=== PATIENT | male | born 1945 | race Two or more races ===

== ENCOUNTER 2018-05-08 17:42 | Emergency (ER) | END 2018-05-08 19:31 | disposition home or self-care (01) | DX: N40.1 Benign prostatic hyperplasia with lower urinary tract symptoms (principal); N41.9 Inflammatory disease of prostate, unspecified; R35.0 Frequency of micturition; E78.00 Pure hypercholesterolemia, unspecified ==

== ENCOUNTER 2018-10-14 15:59 | Emergency (ER) | payer MEDICARE, OTHER ==
[~2018-10-14] VITALS: Ht 175.3 cm; Wt 88.5 kg
[~2018-10-14 15:59] MED LIST: BENA20TA9 PO; CARV3.122 PO; DIGO125T PO; PRAS10TA5 PO; SIMV20TA6 PO; TAMS0.4C34 PO
[2018-10-14 16:24] LABS: *BILIRUBIN,URIN NEGATIVE (NEGATIVE); *BLOOD, URINE 1+ (NEGATIVE); *CLARITY,URINE CLEAR (CLEAR); *COLOR,URINE YELLOW (YELLOW); *KETONES,URINE NEGATIVE (NEGATIVE); *UROBILINOGEN,URINE 0.2 E.U./dl (NORMAL); LEUKOCYTE ESTERASE ,URINE TRACE (NEGATIVE); NITRITE, URINE NEGATIVE (NEGATIVE); UGLUCOSE NEGATIVE (NEGATIVE)
[2018-10-14] MEDS ORDERED: CIPROFLOXACIN HCL 250 MG TABLET ONE (16:43)
[2018-10-14] MEDS ORDERED: PHENAZOPYRIDINE HCL 100 MG TABLET ONE (16:43)
[2018-10-14] MEDS ORDERED: CIPROFLOXACIN HCL 250 MG TABLET PO ONE (16:45)
[2018-10-14] MEDS ORDERED: PHENAZOPYRIDINE HCL 100 MG TABLET PO ONE (16:45)
--- NOTE | 2018-10-14 16:48 | NUR ---
PATIENT WAS SEEN BY DR LANE. MEDICATIONS GIVEN ORDERED. DC, RX AND FOLLOW UP INSTRUCTIONS GIVEN AND EXPLAINED TO PATIENT AND SON WHO STATES THEY UNDERSTAND ALL INSTRUCTIONS.
== END 2018-10-14 16:52 | disposition home or self-care (01) ==
LOC: ER 15:59
DX: N39.0 Urinary tract infection, site not specified (principal); I25.10 Atherosclerotic heart disease of native coronary artery without angina pectoris; E78.00 Pure hypercholesterolemia, unspecified; Z79.899 Other long term (current) drug therapy
CPT/HCPCS: 87086; A4663

== ENCOUNTER 2025-02-25 09:25 | Inpatient (IN) | payer MEDICARE, OTHER ==
[~2025-02-25] VITALS: Ht 167.6 cm; Wt 68.5 kg
[~2025-02-25 09:25] MED LIST changes: +SIMV-46 PO; -SIMV20TA6 PO
[2025-02-25 10:04] VITALS: BP 135/59; TEMP 97.7
[2025-02-25 10:25] VITALS: BP 135/59; TEMP 97.7
[2025-02-25] MEDS ORDERED: REMEDY ESSENTIAL ZINC PASTE 113 GM TOP PRN (17:30)
[2025-02-25] MEDS ORDERED: EMPA10TA PO (17:46)
[2025-02-25] MEDS ORDERED: ASPI81TA31 PO (17:46)
[2025-02-25] MEDS ORDERED: CLON1TAB12 PO (17:47)
[2025-02-25] MEDS ORDERED: CLOP75TA33 PO (17:47)
[2025-02-25] MEDS ORDERED: SACU1TAB7 PO (17:48)
[2025-02-25] MEDS ORDERED: FURO40TA5 PO (17:48)
[2025-02-25 17:50] LABS: PLATELET COUNT (AUTO) 380 K/uL (152-348); RED BLOOD CELL COUNT(AUTO) 3.84 MIL/uL (4.06-5.63); RED CELL DISTRIBUTION WIDTH 14.7 % (12.1-16.2); WHITE BLOOD COUNT (AUTO) 6.5 K/uL (3.6-10.2)
[2025-02-25] MEDS ORDERED: CHOL500062 PO (17:51)
[2025-02-25] MEDS ORDERED: CHOL10005 PO (17:57)
[2025-02-25 18:04] LABS: ASPARTATE AMINOTRANSFERASE 22 U/L (15-37); CREATININE 1.9 mg/dL (0.6-1.3); SODIUM SERUM 133 mmol/L (136-145); TOTAL PROTEIN, SERUM 8.0 g/dL (6.4-8.2); UREA NITROGEN, BLOOD 51 mg/dL (7-18)
[2025-02-25 19:38] VITALS: BP 86/36; TEMP 97.4; O2SAT 97
[2025-02-25] MEDS: IV NS 1000 ML 1,000 ML IV ONE (21:12)
[2025-02-25] MEDS ORDERED: CLONAZEPAM 1 MG TABLET PO PRN (22:15)
[2025-02-26 06:08] VITALS: BP 95/41; TEMP 97.3; O2SAT 98
[2025-02-26 07:48] LABS: *BILIRUBIN,URIN NEGATIVE (NEGATIVE); *CLARITY,URINE CLEAR (CLEAR); *COLOR,URINE YELLOW (YELLOW); *KETONES,URINE NEGATIVE (NEGATIVE); *PROTEIN,URINE NEGATIVE (NEGATIVE); *UROBILINOGEN,URINE 0.2 E.U./dl (NORMAL); LEUKOCYTE ESTERASE ,URINE NEGATIVE (NEGATIVE); NITRITE, URINE NEGATIVE (NEGATIVE); UGLUCOSE 1+ (NEGATIVE)
[2025-02-26 07:51] LABS: *BLOOD, URINE TRACE (NEGATIVE)
[2025-02-26 08:00] VITALS: BP 97/53; TEMP 97.6; O2SAT 97
[2025-02-26] MEDS: SIMVASTATIN 20 MG TABLET PO SCH (08:13)
[2025-02-26] MEDS: SACUBITRIL/VALSARTAN 49 MG-51 MG TABLET PO SCH (08:13)
[2025-02-26] MEDS: ASPIRIN 81 MG TAB.CHEW PO SCH (08:13)
[2025-02-26] MEDS: CLOPIDOGREL 75 MG TABLET PO SCH (08:13)
[2025-02-26] MEDS: FUROSEMIDE 40 MG TABLET PO SCH (08:13)
[2025-02-26] MEDS: EMPAGLIFLOZIN 10 MG TABLET PO SCH (08:23)
[2025-02-26] MEDS: CHOLECALCIFEROL PO SCH (08:45)
[2025-02-26] MEDS ORDERED: MIDODRINE HCL 5 MG TABLET PO PRN (10:30)
[2025-02-26] MEDS: IV NORMAL SALINE 500 ML IV ONE (10:46)
[2025-02-26 12:27] LABS: CREATININE 1.9 mg/dL (0.6-1.3); SODIUM SERUM 133 mmol/L (136-145); UREA NITROGEN, BLOOD 50 mg/dL (7-18)
[2025-02-26 15:53] VITALS: BP_SYST 120; BP_SYST 97; BP_DIAS 49; BP_DIAS 63; TEMP 97.2; O2SAT 97
[2025-02-26 20:00] VITALS: BP 99/50; TEMP 97.5; O2SAT 98
[2025-02-26] MEDS: TAMSULOSIN HCL 0.4 MG CAP.SR.24H PO SCH (20:54)
[2025-02-26] MEDS: CARVEDILOL 3.125 MG TABLET PO SCH (20:54)
[2025-02-26] MEDS: SENNOSIDES/DOCUSATE SODIUM TABLET PO SCH (23:14)
[2025-02-26] MEDS: LACTULOSE 20 G/30 ML LIQUID UDC PO ONE (23:14)
[2025-02-27 06:00] VITALS: BP 114/63; TEMP 97.7; O2SAT 96
[2025-02-27 07:21] LABS: PLATELET COUNT (AUTO) 134 K/uL (152-348); RED BLOOD CELL COUNT(AUTO) 3.53 MIL/uL (4.06-5.63); RED CELL DISTRIBUTION WIDTH 14.8 % (12.1-16.2); WHITE BLOOD COUNT (AUTO) 6.5 K/uL (3.6-10.2)
[2025-02-27 07:49] LABS: ASPARTATE AMINOTRANSFERASE 22 U/L (15-37); CREATININE 1.6 mg/dL (0.6-1.3); UREA NITROGEN, BLOOD 44 mg/dL (7-18)
[2025-02-27 08:00] VITALS: BP 103/54; TEMP 97.6; O2SAT 98
[2025-02-27 08:12] LABS: CREATINE KINASE, TOTAL 79 U/L (39-308); SODIUM SERUM 134 mmol/L (136-145); TOTAL PROTEIN, SERUM 7.2 g/dL (6.4-8.2)
[2025-02-27] MEDS: CHOLECALCIFEROL 1,000 UNIT TABLET PO SCH (08:38)
[2025-02-27] MEDS: LACTULOSE 20 G/30 ML LIQUID UDC PO ONE (09:47)
[2025-02-27] MEDS: DEXTROSE 50% 50 ML DISP.SYRIN IV STA (10:33)
[2025-02-27] MEDS: INSULIN REGULAR, HUMAN 1000 UNIT/10 ML VIAL SQ STA (10:35)
[2025-02-27] MEDS: CARVEDILOL 3.125 MG TABLET PO SCH (11:00)
[2025-02-27] MEDS: SODIUM ZIRCONIUM CYCLOSILICATE 10 GM POWD.PACK PO ONE (12:08)
[2025-02-27 14:14] LABS: *CREATININE,URINE 48.9 mg/dL (30-125); *SODIUM RNDM,URINE 65.0 mmol/L (40-220); *URINE TOTAL PROTEIN RANDOM 14.9 mg/dL (<150/24HR)
[2025-02-27 15:56] VITALS: BP 117/58; TEMP 97.6; O2SAT 97
[2025-02-27] MEDS: DOCUSATE SODIUM 100 MG CAPSULE PO SCH (16:49)
[2025-02-27 20:00] VITALS: BP 116/60; TEMP 97.5; O2SAT 98
[2025-02-28 05:00] VITALS: BP 103/53; TEMP 97.5; O2SAT 97
[2025-02-28 07:27] LABS: PLATELET COUNT (AUTO) 316 K/uL (152-348); RED BLOOD CELL COUNT(AUTO) 3.50 MIL/uL (4.06-5.63); RED CELL DISTRIBUTION WIDTH 14.8 % (12.1-16.2); WHITE BLOOD COUNT (AUTO) 7.6 K/uL (3.6-10.2)
[2025-02-28 08:00] VITALS: BP 100/58; TEMP 97.6; O2SAT 98
[2025-02-28 08:04] LABS: ASPARTATE AMINOTRANSFERASE 16 U/L (15-37); CREATININE 1.4 mg/dL (0.6-1.3); SODIUM SERUM 136 mmol/L (136-145); TOTAL PROTEIN, SERUM 7.0 g/dL (6.4-8.2); UREA NITROGEN, BLOOD 34 mg/dL (7-18)
[2025-02-28] MEDS: MIRALAX 17 GM POWD.PACK PO SCH (08:38)
[2025-02-28 08:42] LABS: CREATINE KINASE, TOTAL 51 U/L (39-308)
[2025-02-28 10:07] LABS: PTH, INTACT 20 pg/mL (15-65)
[2025-02-28 16:13] VITALS: BP 106/61; TEMP 97.7; O2SAT 98
[2025-02-28 20:15] VITALS: BP 120/57; TEMP 97.3; O2SAT 98
[2025-03-01 08:00] VITALS: BP 108/55; TEMP 97.7; O2SAT 97
[2025-03-01 15:59] VITALS: BP 115/49; TEMP 97.7; O2SAT 98
[2025-03-01 19:45] VITALS: BP 123/52; TEMP 98.3; O2SAT 99
[2025-03-02 08:00] VITALS: BP 126/61; TEMP 97.2; O2SAT 97
[2025-03-02] MEDS: CARVEDILOL 6.25 MG TABLET PO SCH (09:59)
[2025-03-02] MEDS: SPIRONOLACTONE 25 MG TABLET PO SCH (09:59)
[2025-03-02] MEDS: FUROSEMIDE 20 MG TABLET PO SCH (10:00)
[2025-03-02 14:10] LABS: PLATELET COUNT (AUTO) 352 K/uL (152-348); RED BLOOD CELL COUNT(AUTO) 3.49 MIL/uL (4.06-5.63); RED CELL DISTRIBUTION WIDTH 14.8 % (12.1-16.2); WHITE BLOOD COUNT (AUTO) 10.8 K/uL (3.6-10.2)
[2025-03-02 15:05] LABS: CREATININE 1.5 mg/dL (0.6-1.3); SODIUM SERUM 134 mmol/L (136-145); UREA NITROGEN, BLOOD 32 mg/dL (7-18)
[2025-03-02 16:00] VITALS: BP 106/50; TEMP 97.2; O2SAT 97
[2025-03-02 20:00] VITALS: BP 100/53; TEMP 97.8; O2SAT 96
[2025-03-03 06:00] VITALS: BP 106/53; TEMP 97.2; O2SAT 96
[2025-03-03] MEDS ORDERED: CARVEDILOL 6.25 MG TABLET PO SCH (08:00)
[2025-03-03 08:10] VITALS: BP 139/67; TEMP 97.6; O2SAT 97
[2025-03-03] MEDS: CARVEDILOL 3.125 MG TABLET PO SCH (08:14)
[2025-03-03 16:26] VITALS: BP 140/71; TEMP 97.7; O2SAT 98
[2025-03-03 21:28] VITALS: BP 98/52; TEMP 97.7; O2SAT 97
[2025-03-04 06:13] VITALS: BP 120/66; TEMP 97; O2SAT 99
[2025-03-04 07:57] VITALS: BP 119/58; TEMP 97.6; O2SAT 96
[2025-03-04 16:08] VITALS: BP 105/57; TEMP 97.6; O2SAT 95
[2025-03-04 20:47] VITALS: BP 104/51; TEMP 97.3; O2SAT 99
[2025-03-05 06:37] VITALS: BP 114/51; TEMP 97.7; O2SAT 97
[2025-03-05 07:54] VITALS: BP 112/60; TEMP 97.7; O2SAT 100
[2025-03-05 08:28] LABS: PLATELET COUNT (AUTO) 350 K/uL (152-348); RED BLOOD CELL COUNT(AUTO) 3.26 MIL/uL (4.06-5.63); RED CELL DISTRIBUTION WIDTH 14.8 % (12.1-16.2); WHITE BLOOD COUNT (AUTO) 9.6 K/uL (3.6-10.2)
[2025-03-05 08:46] LABS: CREATININE 1.4 mg/dL (0.6-1.3); SODIUM SERUM 137 mmol/L (136-145); UREA NITROGEN, BLOOD 41 mg/dL (7-18)
[2025-03-05 15:57] VITALS: BP 99/45; TEMP 98.7; O2SAT 93
[2025-03-05 20:11] VITALS: BP 102/45; TEMP 97.3; O2SAT 97
[2025-03-06 05:04] VITALS: BP 101/58; TEMP 97.6; O2SAT 96
[2025-03-06 08:00] VITALS: BP 132/67; TEMP 97.6; O2SAT 97
[2025-03-06 11:35] LABS: PLATELET COUNT (AUTO) 351 K/uL (152-348); RED BLOOD CELL COUNT(AUTO) 3.23 MIL/uL (4.06-5.63); RED CELL DISTRIBUTION WIDTH 15.1 % (12.1-16.2); WHITE BLOOD COUNT (AUTO) 7.5 K/uL (3.6-10.2)
[2025-03-06 11:46] LABS: ASPARTATE AMINOTRANSFERASE 16 U/L (15-37); CREATININE 1.6 mg/dL (0.6-1.3); SODIUM SERUM 140 mmol/L (136-145); TOTAL PROTEIN, SERUM 7.5 g/dL (6.4-8.2); UREA NITROGEN, BLOOD 42 mg/dL (7-18)
[2025-03-06 16:02] VITALS: BP 125/53; TEMP 97.6; O2SAT 98
[2025-03-06 20:38] VITALS: BP 103/49; TEMP 98; O2SAT 96
[2025-03-07 06:31] VITALS: BP 102/52; TEMP 97.7
[2025-03-07 08:16] VITALS: BP 115/55
== END 2025-03-07 13:10 | disposition home health service (06) | DRG 291 ==
PROVIDERS: ADMIT Physical Medicine & Rehabilitation Pain Medicine; ATTEND Physical Medicine & Rehabilitation Pain Medicine
DX: I13.0 Hypertensive heart and chronic kidney disease with heart failure and stage 1 through stage 4 chronic kidney disease, or unspecified chronic kidney disease (principal); I50.43 Acute on chronic combined systolic (congestive) and diastolic (congestive) heart failure; N17.9 Acute kidney failure, unspecified; E87.1 Hypo-osmolality and hyponatremia; I25.10 Atherosclerotic heart disease of native coronary artery without angina pectoris; I35.0 Nonrheumatic aortic (valve) stenosis; E87.5 Hyperkalemia; N18.9 Chronic kidney disease, unspecified; R53.1 Weakness; E86.0 Dehydration; R04.0 Epistaxis; I95.9 Hypotension, unspecified; E78.5 Hyperlipidemia, unspecified; T50.2X5A Adverse effect of carbonic-anhydrase inhibitors, benzothiadiazides and other diuretics, initial encounter; Y92.230 Patient room in hospital as the place of occurrence of the external cause; Z95.5 Presence of coronary angioplasty implant and graft
CPT/HCPCS: 36415; 71045; 71046; 76770; 83735; 83970; 84100; 84155; 84165; 84300; 85025; 87040; 93307; 97535-GO-CO; J1815; J3490; J7040